=== PATIENT | female | born 1995 | race Caucasian/White ===

== ENCOUNTER 2020-02-13 16:43 | Outpatient (REF) | payer OTHER, SELFPAY | END 2020-02-13 16:44 | disposition home or self-care (01) | LOC: HO.LAB 16:43 | PROVIDERS: Visit Provider Internal Medicine | DX: Z20.828 Contact with and (suspected) exposure to other viral communicable diseases (principal) | CPT/HCPCS: C9803; U0003 ==

== ENCOUNTER 2020-10-24 12:08 | Outpatient (REF) | payer OTHER, SELFPAY | END 2020-10-24 12:09 | disposition home or self-care (01) | LOC: HO.LAB 12:08 | PROVIDERS: Visit Provider Internal Medicine | DX: Z20.822 Contact with and (suspected) exposure to COVID-19 (principal) | CPT/HCPCS: C9803; U0003; U0005 ==

== ENCOUNTER 2020-12-06 13:28 | Emergency (ER) | payer OTHER, SELFPAY ==
[2020-12-06 13:48] VITALS: BP 117/78; PULSE 106; RESP 18; TEMP 36.9; O2SAT 98; BMI 25.8
--- NOTE | 2020-12-06 14:52 | ED.URI ---
HPI - URI/Sore Throat General Chief Complaint: Upper Respiratory Symptoms Stated Complaint: flu like symptoms, + Time Seen by Provider: 12/06/20 14:48 Source: patient and solar installation technician Mode of arrival: ambulatory Limitations: language barrier History of Present Illness HPI Narrative: 25-year-old female here with complaints of bilateral ear pain, headache, sore throat, body aches, nausea and cough. Patient is not vaccinated for COVID She believe she is as she has had irregular bleeding for the last 3 months. She tells me she did a home test the end of last month and there was a faint line. She has not seen an OB doctor. Related Data Allergies Allergy/AdvReac Type Severity Reaction Status Date / Time tomato [TOMATO] Allergy Mild ITCHY Unverified 11/24/19 19:38 Review of Systems Review of Systems: Yes all other systems are reviewed and are negative Constitutional: Constitutional: Reports no additional constitutional complaints, Reports body ache(s), Denies chills, Denies fever(s), Reports headache(s) and Denies weakness Eyes: Eyes: Reports no additional eye complaints and Denies change in vision ENT: Reports system reviewed and no additional complaints, except as documented, Denies dizziness, Reports otalgia, Reports headache(s), Denies nasal congestion, Denies nasal discharge, Denies neck pain and Reports sore throat Cardiovascular: Cardiovascular: Reports no additional cardiovascular complaints, Denies chest pain, Denies leg edema and Denies dyspnea Respiratory: Respiratory: Reports no additional respiratory complaints, Reports cough and Denies dyspnea Gastrointestinal: Gastrointestinal: Reports no additional gastrointestinal complaints, Denies abdominal pain, Denies diarrhea, Reports nausea and Denies vomiting Genitourinary: Genitourinary: Reports no additional female genitourinary complaints and Denies urinary incontinence Musculoskeletal: Musculoskeletal: Reports no additional musculoskeletal complaints, Denies back pain, Denies arthralgias, Denies joint swelling, Denies neck pain, Denies numbness and Denies tingling Integumentary/Breasts: Skin/Breast: Reports system reviewed and no additional complaints, except as docu and Denies rash Neurologic: Reports system reviewed and no additional complaints, except as documented, Denies Abnormal speech present, Denies dizziness, Reports headache(s), Denies numbness, Denies tingling and Denies weakness PMF Past Medical History Attestation statement: The following information was validated with the patient. Source: old records reviewed and nursing notes reviewed Medical History Asthma Hypoglycemia Social History Social History Advance Directives: No Advance Directives Information Provided: Yes Physical Exam Vital Signs: Vital Signs: Last Vital Signs Temp 98.4 F 12/06/20 13:48 Pulse 106 H 12/06/20 13:48 Resp 18 12/06/20 13:48 BP 117/78 12/06/20 13:48 Pulse Ox 98 12/06/20 13:48 Body Mass Index 25.8 Const: General: cooperative, healthy appearing, comfortable and no acute distress Orientation/consciousness: patient oriented x3 Limitations: no limitations HENMT: Head: Yes normal to inspection Ears: hearing grossly normal bilaterally and TM's normal bilaterally General nose exam: Normal external nose present Face and sinus: Yes normal facial exam Mouth: Normal oral and palatal mucosa present Throat: Yes posterior oropharynx normal, Yes tonsils normal and Yes uvula midline Eyes: General: appearance normal, both eyes and all related structures Pupils: Equal, round and reactive pupils present Neck: Neck: Yes normal visual inspection Chest: Chest palpation & inspection: normal inspection of the chest Resp: Effort & Inspection: normal respiratory effort Auscultation: clear to auscultation bilaterally Cardio: Rate: regular rate Rhythm: regular rhythm Peripheral pulses: Peripheral pulses 2+ throughout GI: Inspection: Yes normal to inspection Palpation (GI): Soft to palpation and nontender Auscultation: normal bowel sounds Back/Spine/Pelvis: Thoracic/Lumbar Spine: thoracic and lumbar spine normal to inspection Skin: General skin exam: no rashes or lesions noted Neuro: General: patient oriented x3, no focal motor deficits and normal sensation to monofilament Cranial nerves: Yes Equal, round and reactive pupils present Cognition (Neuro): normal cognition Speech: No Abnormal speech present Gait exam (Neuro): Normal gait present Motor exam (neuro): 5/5 motor strength present throughout Extrem: General: Yes normal to inspection Course Course Course Narrative: URI symptoms for several days. Patient not vaccinated for COVID. She is also concerned for . 1605-COVID screen negative. test negative. Likely viral.. Reviewed worrisome signs and symptoms of when to return to the emergency department. Comfortable discharge home. MDM - URI/Sore Throat Lab Data Labs: Lab Results 12/06/20 12/06/20 12/06/20 Range/Units 15:02 15:02 15:53 Urine Color Urine Appearance Urine pH (5.0-8.0) Ur Specific Powers (1.005-1.025) Urine Protein (NEG-TRACE) MG/DL Urine Glucose (UA) (NEG) MG/DL Urine Ketones (NEG) MG/DL Urine Blood (NEG) Urine Nitrite (NEG) Ur Leukocyte Esterase (NEG) Urine RBC (0) /HPF Urine WBC (0-4) /HPF Ur Squamous Epith Cells /LPF Urine Bacteria /LPF Urine Mucus /LPF Urine Test NEGATIVE (NEGATIVE) COVID-19 (MARY) Negative (Negative) COVID-19 [employer] Com See Note S. pyogenes GrpA CAREY Negative (Negative) 12/06/20 Range/Units 15:53 Urine Color YELLOW Urine Appearance CLEAR Urine pH 6.5 (5.0-8.0) Ur Specific Powers 1.010 (1.005-1.025) Urine Protein NEG (NEG-TRACE) MG/DL Urine Glucose (UA) NEG (NEG) MG/DL Urine Ketones NEG (NEG) MG/DL Urine Blood NEG (NEG) Urine Nitrite NEG (NEG) Ur Leukocyte Esterase 3+ H (NEG) Urine RBC 0-2 (0) /HPF Urine WBC 5-9 H (0-4) /HPF Ur Squamous Epith Cells 3+ /LPF Urine Bacteria 1+ /LPF Urine Mucus 2+ /LPF Urine Test (NEGATIVE) COVID-19 (MARY) (Negative) COVID-19 Clin Com S. pyogenes GrpA CAREY (Negative) Discharge Plan Discharge Clinical Impression: Viral infection Patient Disposition: Home, Self-Care Instructions: Viral Syndrome (ED) Additional Instructions: Increase fluids rest Your test is negative Motrin or Tylenol for fever or pain as needed Referrals: Physician,None [Primary Care Provider] - 2 days Michael Mcdonnell MD [Physician] - 2 days Print Language: Japanese
[2020-12-06 15:32] LABS: Strep A Nucleic Acid Negative (Negative)
[2020-12-06 15:33] LABS: IDNOW Serial# 55D5AD1C
[2020-12-06 15:34] LABS: COVID-19 Test Negative (Negative)
[2020-12-06 16:04] LABS: Appearance Urine CLEAR; Color Urine YELLOW; Glucose Urine UA NEG (NEG); Leukocyte Esterase Urine 3+ (NEG); Nitrite Urine NEG (NEG); PH 6.5 (5.0-8.0); UACC Culture Trigger YES; Urine Blood NEG (NEG); Urine Ketones NEG (NEG); Urine Protein NEG (NEG-TRACE)
[2020-12-06 16:06] LABS: UPreg QC Valid YES; Urine Pregnancy NEGATIVE (NEGATIVE)
[2020-12-06 16:11] LABS: RBC Urine 0-2 /HPF (0); Squamous Epithelial Cell Urine 3+ /LPF
[2020-12-06 16:12] LABS: Bacteria Urine 1+ /LPF; Mucus Urine 2+ /LPF
== END 2020-12-06 16:46 | disposition home or self-care (01) ==
PROVIDERS: Nurse Practitioner Family; Emergency Provider Emergency Medicine Emergency Medical Services
DX: B34.9 Viral infection, unspecified (principal); R05 Cough; H92.03 Otalgia, bilateral; Z20.822 Contact with and (suspected) exposure to COVID-19; Z79.899 Other long term (current) drug therapy
CPT/HCPCS: 36415; 81001; 81025; 87086; 87635; 87651; 99283; 99284

== ENCOUNTER 2022-10-07 10:01 | Outpatient (AMB) | payer MEDICAID, SELFPAY ==
--- NOTE | 2022-10-07 10:12 | MHC.OFFVIS ---
Intake Vital Signs 10/07/22 10:14 Height 4 ft 11 in Weight 160 lb BMI 32.3 BP 104/60 Intake Visit Reasons: Consult Intake Note: LMP 08/14/22 EDC 05/21/23 7w 4d The patient agreed to use of a medical records supervisor during this encounter. Scribed for PAULO Reyna by Emily Luong, medical records supervisor, on 10/07/2022 at 10:29 am EST. [employer] Required: Yes [employer] Language: Senior Strategy Manager Name: Hortensia Information Interpreted: non-clinical & clinical Nutritionist Public Health: Nutritionist Public Health Present (Hortensia) Allergies tomato [TOMATO] Allergy (Mild, Verified 10/07/22 10:19) ITCHY Is last menstrual period known: Yes Last menstrual period: 08/14/22 HPI HPI Comments History of Present Illness Details She is here for a consult with complaints of abdominal cramping near waist level, and first trimester n/v. G 4 P 1. LMP 08/14/22, regular and normal cycle. EDC 05/21/23 ~7w 4d. Hx of stillbirth at 6 months in [facility]. 2016 (first del.). SAB 05/2022 at [facility] in first trimester. PMSH: Asthma, Thyroid (not on meds, ?diagnosis), migraines, constipation (uses Miralax), D&C. Not taking PNV. No VB. She denies any complications in her delivery or care. Has not has had a US yet. Does not have a PCP but is looking for one. [facility] Medical History (Updated 10/07/22 @ 10:44 by Emily Luong) Asthma Hypoglycemia Missed menses Nausea/vomiting in Pelvic cramping Positive test Female Reproductive History Menstrual Date of last menstrual period: 08/14/22 Total pregnancies: 2 Full term: 1 Number of Living Children: 1 Ab spontaneous: 1 Physical Exam Vital Signs: Last Vital Signs BP 104/60 10/07/22 10:14 BMI result Body Mass Index 32.3 Const General: cooperative, healthy appearing, comfortable, no acute distress, well developed, alert and awake Results AMB Test Urine AMB Test Urine Positive Last Edit by HUSSEIN Benavidez on 10/07/22 10:23 faint positive Rosa Maria Mccord 10/07/22 10:23 Results Reviewed Results Reviewed: Laboratory Last Values [facility] Positive 10/07/22 10:23 Assessment & Plan Assessment & Plan (1) Positive test: Code(s): Z32.01 - Encounter for test, result positive Plan: Discussed: VB, abd pain . PNV-gummies, and B6 sent to Pharmacy. Instructions given. Advised to eat small frequent meals and stay cool and hydrated. US scheduled; follow up in person. Reviewed to call for any VB. Pt. lives in [place] and considering returning to [facility] for care. Also higher risk due to past stillbirth. Discussed to call the service here for any emergencies/deliveries to be directed to [facility]. RTO in a week. (2) Missed menses: Code(s): N92.6 - Irregular menstruation, unspecified (3) Pelvic cramping: Code(s): R10.2 - Pelvic and perineal pain (4) Nausea/vomiting in : Code(s): O21.9 - Vomiting of , unspecified Orders: Orders US OB limited Today N92.6 - Irregular menstruation, unspecified, Z87.59 - Personal history of other complications of , childbirth and the puerperium AMB HCG Urine Test Today Z32.01 - Encounter for test, result positive Medications: New pyridoxine (vitamin B6) (Vitamin B-6) may take every 6-8 hours for nausea 25 mg PO TID 90 tabs 3RF nausea and vomiting PNV [id number] 400 mcg-35 mg- 25 mg-5 mg ( Gummies) 1 tab PO DAILY 90 tabs 4RF Coding Level of Care Code New Pt Level 3 (51396) Diagnoses Positive test Z32.01 Missed menses N92.6 Pelvic cramping R10.2 Nausea/vomiting in O21.9
[2022-10-07 10:14] VITALS: BP 104/60; BMI 32.3
== END 2022-10-07 10:55 | disposition home or self-care (01) ==
LOC: HO.HWS 10:02
PROVIDERS: Visit Provider Advanced Practice Midwife
DX: Z32.01 Encounter for pregnancy test, result positive (principal); N92.6 Irregular menstruation, unspecified; R10.2 Pelvic and perineal pain; O21.9 Vomiting of pregnancy, unspecified
CPT/HCPCS: 99203

== ENCOUNTER → 2022-10-07 10:01 | Outpatient (BNVA) | payer MEDICAID, SELFPAY | PROVIDERS: Visit Provider Advanced Practice Midwife | DX: O26.891 Other specified pregnancy related conditions, first trimester (principal); R10.9 Unspecified abdominal pain; N92.6 Irregular menstruation, unspecified; O21.9 Vomiting of pregnancy, unspecified; O09.291 Supervision of pregnancy with other poor reproductive or obstetric history, first trimester; Z3A.00 Weeks of gestation of pregnancy not specified | CPT/HCPCS: 81025; 99203 ==

== ENCOUNTER 2022-10-08 10:49 | Outpatient (REF) | payer MEDICAID, SELFPAY ==
--- NOTE | ~2022-10-08 | US_ITS ---
EXAMINATION: US OBSTETRICAL ULTRASOUND CLINICAL INFORMATION: Irregular menstruation. COMPARISON: None available. LMP: 08/14/2022. Gestational age by maternal dates is 7 weeks, 6 days. Estimated date of delivery by maternal dates is 05/21/2023. TECHNIQUE: Multiple 2-D grayscale and Doppler ultrasound images of the pelvis were obtained. FINDINGS: Uterus: Anteverted/anteflexed measuring 7.9 x 4.7 x 6.9 cm. The endometrial stripe measures up to 1.2 cm at the level the fundus. No focal abnormality is seen. Possible small exophytic fibroid off of the fundus measuring 1.3 x 1.0 x 1.1 cm. Color Doppler showed no abnormal vascular flow. The cervix is closed measuring approximately 2 cm in length. No free fluid in the cul-de-sac. Right ovary: 3.5 x 1.9 x 2.3 cm. Small functional follicles are seen. Doppler showed no abnormal vascular flow. No right adnexal abnormality. Left ovary: 2.8 x 1.7 x 1.7 cm. Small functional follicles are seen. Doppler showed no abnormal vascular flow. No left adnexal abnormality. US/US OB pelvic and transvaginal IMPRESSION: No evidence for intrauterine or extrauterine gestation. Possible small subserosal fibroid off of the fundus with benign features. Correlation with beta-hCG levels recommended. Short-term COLLECT ON DELIVERY CLERK and imaging follow-up as clinically indicated.
== END 2022-10-08 10:50 | disposition home or self-care (01) ==
LOC: HO.HMGCX 10:49
PROVIDERS: Visit Provider Advanced Practice Midwife
DX: O20.0 Threatened abortion (principal); Z87.59 Personal history of other complications of pregnancy, childbirth and the puerperium
CPT/HCPCS: 36415; 76801; 76817; 84702

== ENCOUNTER 2022-10-08 12:14 | Outpatient (REF) | payer MEDICAID, SELFPAY ==
[2022-10-08 13:27] LABS: HCG Quantitative 8 mIU/mL
== END 2022-10-08 12:15 | disposition home or self-care (01) ==
LOC: HO.LAB 12:14
PROVIDERS: Visit Provider Advanced Practice Midwife
DX: O20.0 Threatened abortion (principal); Z87.59 Personal history of other complications of pregnancy, childbirth and the puerperium
CPT/HCPCS: 36415; 84702

== ENCOUNTER 2022-10-10 12:19 | Outpatient (REF) | payer MEDICAID, SELFPAY ==
[2022-10-10 15:02] LABS: HCG Quantitative 3 mIU/mL
== END 2022-10-10 12:20 | disposition home or self-care (01) ==
LOC: HO.LAB 12:19
PROVIDERS: Visit Provider Advanced Practice Midwife
DX: O20.0 Threatened abortion (principal)
CPT/HCPCS: 36415; 84702